=== PATIENT | male | born 1980 | race African-American/Black ===

== ENCOUNTER 2017-10-09 13:08 | Emergency (ER) | payer MEDICAID ==
[~2017-10-09] VITALS: Ht 182.9 cm; Wt 78.1 kg
[2017-10-09 13:13] VITALS: BP 119/66
== END 2017-10-09 14:21 | disposition home or self-care (01) ==
LOC: ED 14:15
DX: L29.9 Pruritus, unspecified (principal)
CPT/HCPCS: 99283

== ENCOUNTER 2018-01-31 21:32 | Emergency (ER) | payer MEDICAID ==
[~2018-01-31] VITALS: Ht 182.9 cm; Wt 80.8 kg
[2018-01-31 21:36] VITALS: BP 114/78
== END 2018-01-31 22:37 | disposition home or self-care (01) ==
LOC: ED 22:31
DX: M79.671 Pain in right foot (principal); M79.672 Pain in left foot; F17.210 Nicotine dependence, cigarettes, uncomplicated; Z21 Asymptomatic human immunodeficiency virus [HIV] infection status
CPT/HCPCS: 99281